=== PATIENT | female | born 1995 | race Caucasian/White ===

== ENCOUNTER 2021-08-01 23:12 | Emergency (ER) | payer SELFPAY ==
[2021-08-01 23:52] LABS: Mucus,Urine FEW /HPF
[2021-08-01 23:54] LABS: Bilirubin,Urine NEG (Negative); Blood,Urine MOD (Negative); Color,Urine Yellow (Yellow); Protein,Urine <15 mg/dL mg/dL (Negative); Urobilinogen,Urine < 2.0 mg/dL (<2.0)
[2021-08-01 23:59] LABS: Basophils % (Auto) 0.2 % (0.0-1.8); Eosinophils # (Auto) 0.2 K/mm3 (0.0-0.4); Eosinophils % (Auto) 1.3 % (0.0-4.3); Hematocrit 41.9 % (30.3-42.9); Hemoglobin 13.8 gm/dl (10.1-14.3); Lymphocytes # (Auto) 3.9 K/mm3 (1.2-5.4); Lymphocytes % (Auto) 30.8 % (13.4-35.0); Mean Corpuscular HGB Conc 33 % (30-34); Mean Corpuscular Volume 89 fl (79-97); Monocytes # (Auto) 1.1 K/mm3 (0.0-0.8); Monocytes % (Auto) 8.7 % (0.0-7.3); Platelet Count 286 K/mm3 (140-440); Red Blood Count 4.71 M/mm3 (3.65-5.03)
--- NOTE | 2021-08-02 02:56 | Emergency Department Report ---
ED Female HPI - General Chief complaint: Vaginal Bleeding Stated complaint: COMPLICATION Time Seen by Provider: 08/02/21 02:22 Source: patient Mode of arrival: Ambulatory Limitations: No Limitations - History of Present Illness Initial comments: Is a 26-year-old female who is G0, who presents for vaginal spotting x3 days. Last menstrual cycle 1 month ago. Patient states she believes she is having miscarriage. There is no fevers no chills no nausea no vomiting. No abnormal vaginal discharge no back pain. Abdominal pain is described at 4/10 cramping bilateral lower. There is no exacerbated by movement ,symptoms are relieved by nothing tried there is been no fever no chills. MD Complaint: vaginal bleeding - Related Data Allergies Allergy/AdvReac Type Severity Reaction Status Date / Time No Known Allergies Allergy Verified 08/01/21 23:24 ED Review of Systems ROS: Stated complaint: COMPLICATION Other details as noted in HPI Constitutional: denies: chills, fever Eyes: denies: eye pain, eye discharge, vision change ENT: denies: ear pain, throat pain Respiratory: denies: cough, shortness of breath, wheezing Cardiovascular: denies: chest pain, palpitations Endocrine: no symptoms reported Gastrointestinal: abdominal pain. denies: nausea, vomiting, diarrhea, hematemesis, melena Genitourinary: abnormal menses, other (Vaginal spotting pink). denies: urgency, dysuria, frequency, hematuria, discharge Musculoskeletal: denies: back pain, joint swelling, arthralgia Skin: denies: rash, lesions Neurological: denies: headache, weakness, paresthesias Psychiatric: denies: anxiety, depression Hematological/Lymphatic: denies: easy bleeding, easy bruising ED Past Medical Hx - Past Medical History Previous Medical History?: (Lateral lower quadrant) ED Physical Exam - General Limitations: No Limitations General appearance: alert, in no apparent distress - Head Head exam: Present: atraumatic, normocephalic - Eye Eye exam: Present: normal appearance, EOMI Pupils: Present: normal accommodation - ENT ENT exam: Present: mucous membranes moist - Neck Neck exam: Present: normal inspection - Respiratory Respiratory exam: Present: normal lung sounds bilaterally. Absent: respiratory distress, wheezes, stridor - Cardiovascular Cardiovascular Exam: Present: regular rate, normal rhythm, normal heart sounds. Absent: systolic murmur, diastolic murmur, rubs, gallop - GI/Abdominal GI/Abdominal exam: Present: soft, normal bowel sounds. Absent: distended, tenderness, guarding, rebound, rigid - Rectal Rectal exam: Present: deferred - Extremities Exam Extremities exam: Present: normal inspection, full ROM, normal capillary refill. Absent: tenderness, pedal edema - Back Exam Back exam: Present: normal inspection, full ROM. Absent: CVA tenderness (R), CVA tenderness (L) - Neurological Exam Neurological exam: Present: alert, oriented X3, CN II-XII intact, normal gait - Psychiatric Psychiatric exam: Present: normal affect, normal mood - Skin Skin exam: Present: warm, dry, intact, normal color. Absent: rash ED Course Vital Signs 08/01/21 23:20 Temperature 98.2 F Pulse Rate 86 Respiratory 18 Rate Blood Pressure 147/107 [Right] O2 Sat by Pulse 96 Oximetry ED Medical Decision Making - Lab Data Result diagrams: 08/01/21 23:31 Labs 08/01/21 08/01/21 08/01/21 23:31 23:31 23:31 WBC 12.6 H RBC 4.71 Hgb 13.8 Hct 41.9 MCV 89 MCH 29 MCHC 33 RDW 13.0 L Plt Count 286 Lymph % (Auto) 30.8 [place] % (Auto) 8.7 H Eos % (Auto) 1.3 Baso % (Auto) 0.2 Lymph # (Auto) 3.9 [place] # (Auto) 1.1 H Eos # (Auto) 0.2 Baso # (Auto) 0.0 Seg Neutrophils % 59.0 Seg Neutrophils # 7.5 HCG, Qual Positive HCG, Quant 11.43 H Urine Color Urine Turbidity Urine pH Ur Specific [place] Urine Protein Urine Glucose (UA) Urine Ketones Urine Blood Urine Nitrite Ur Reducing Substances Urine Bilirubin Urine Ictotest Urine Urobilinogen Ur Leukocyte Esterase Urine WBC (Auto) Urine RBC (Auto) U Epithel Cells (Auto) Urine Mucus Blood Type 08/01/21 08/01/21 23:31 Unknown WBC RBC Hgb Hct MCV MCH MCHC RDW Plt Count Lymph % (Auto) [place] % (Auto) Eos % (Auto) Baso % (Auto) Lymph # (Auto) [place] # (Auto) Eos # (Auto) Baso # (Auto) Seg Neutrophils % Seg Neutrophils # HCG, Qual HCG, Quant Urine Color Yellow Urine Turbidity Clear Urine pH 8.0 H Ur Specific [place] 1.019 Urine Protein <15 mg/dl Urine Glucose (UA) Neg Urine Ketones Neg Urine Blood Mod Urine Nitrite Neg Ur Reducing Substances Not Reportable Urine Bilirubin Neg Urine Ictotest Not Reportable Urine Urobilinogen < 2.0 Ur Leukocyte Esterase Neg Urine WBC (Auto) 2.0 Urine RBC (Auto) 99.0 U Epithel Cells (Auto) 5.0 Urine Mucus Few Blood Type O POSITIVE - Radiology Data Radiology results: report reviewed, image reviewed ULTRASOUND OBSTETRIC INDICATION: with abdominal pain and spotting. TECHNIQUE: Transabdominal and Transvaginal. COMPARISON: None available. FINDINGS: GESTATIONAL SAC: Not seen. YOLK SAC: Not seen. EMBRYO/FETUS: Not seen. ADNEXA: A left ovarian dominant follicle measures up to 1.7 cm. No other significant abnormality. FREE FLUID: None. ADDITIONAL FINDINGS: None. IMPRESSION: 1. No intrauterine is identified sonographically. Please correlate with the patient's beta hCG level. 2. No acute findings. Signer Name: Dominguez Leong MD Signed: 08/02/2021 3:33 AM Workstation Name: [id number] Transcribed By: IVAN Dictated By: Dominguez Leong MD Electronically Authenticated By: Dominguez Leong MD Signed Date/Time: 08/02/21332 DD/ 0 TD/TT: ULTRASOUND OBSTETRIC INDICATION: with abdominal pain and spotting. TECHNIQUE: Transabdominal and Transvaginal. COMPARISON: None available. FINDINGS: GESTATIONAL SAC: Not seen. YOLK SAC: Not seen. EMBRYO/FETUS: Not seen. ADNEXA: A left ovarian dominant follicle measures up to 1.7 cm. No other significant abnormality. FREE FLUID: None. ADDITIONAL FINDINGS: None. IMPRESSION: 1. No intrauterine is identified sonographically. Please correlate with the patient's beta hCG level. 2. No acute findings. Signer Name: Dominguez Leong MD Signed: 08/02/2021 3:33 AM Workstation Name: [id number] Transcribed By: IVAN Dictated By: Dominguez Leong MD Electronically Authenticated By: Dominguez Leong MD Signed Date/Time: 08/02/21332 DD/ 0331 TD/TT: - Medical Decision Making Ultrasound demonstrates left ovarian cyst, no sonographic IUP noted however hCG is 11.4 plan diagnosed ovarian cyst, bleeding during first trimester, pelvic rest, follow-up with [employer] DEPARTMENT MANAGER in 1 to 2 days for repeat ultrasound. Patient verbalized agreement and understanding with discharge plan. Patient will be DC'd home in stable condition at this time. Critical care attestation.: If time is entered above; I have spent that time in minutes in the direct care of this critically ill patient, excluding procedure time. ED Disposition Clinical Impression: Vaginal bleeding during Ovarian cyst Qualifiers: Laterality: left Qualified Code(s): N83.202 - Unspecified ovarian cyst, left side Disposition: HOME / SELF CARE / HOMELESS Is pt being admited?: No Does the pt Need Aspirin: No Condition: Stable Additional Instructions: Follow-up with [employer] DEPARTMENT MANAGER in 1 to 2 days. Pelvic rest until cleared by [employer] DE[employer]MENT MANAGER. Return to emergency department should symptoms worsen. Referrals: MONTY MOORE MD [Staff Physician] - 3-5 Days Forms: Work/School Release Form(ED) Time of Disposition: 05:10
--- NOTE | 2021-08-02 03:37 | Ultrasound Report ---
ULTRASOUND OBSTETRIC INDICATION: with abdominal pain and spotting. TECHNIQUE: Transabdominal and Transvaginal. COMPARISON: None available. FINDINGS: GESTATIONAL SAC: Not seen. YOLK SAC: Not seen. EMBRYO/FETUS: Not seen. ADNEXA: A left ovarian dominant follicle measures up to 1.7 cm. No other significant abnormality. FREE FLUID: None. ADDITIONAL FINDINGS: None. IMPRESSION: 1. No intrauterine is identified sonographically. Please correlate with the patient's beta hCG level. 2. No acute findings. Signer Name: Dominguez Leong MD Signed: 08/02/2021 3:33 AM Workstation Name: [id number]
[2021-08-02 05:19] VITALS: BP 146/100
== END 2021-08-02 05:17 | disposition home or self-care (01) ==
LOC: ED 23:12
DX: O20.9 Hemorrhage in early pregnancy, unspecified (principal); O26.891 Other specified pregnancy related conditions, first trimester; N83.202 Unspecified ovarian cyst, left side; Z3A.00 Weeks of gestation of pregnancy not specified
CPT/HCPCS: 36415; 76801; 76817; 81001; 84702; 84703; 85025; 86900; 86901; 99284

== ENCOUNTER 2021-08-03 20:42 | Emergency (ER) | payer MEDICAID ==
[2021-08-03 20:47] VITALS: BP 125/85
--- NOTE | 2021-08-04 01:04 | Emergency Department Report ---
ED Female HPI - General Chief complaint: Vaginal Bleeding Stated complaint: COMPLICATION Time Seen by Provider: 08/04/21 00:57 Source: patient Mode of arrival: Ambulatory Limitations: No Limitations - History of Present Illness Initial comments: Is a 26-year-old female who is 6 weeks who presents for vaginal bleeding. This is a follow-up for this patient she was seen on 08/01/2021 diagnosed with threatened miscarriage. Patient was to follow-up with [facility] however she cannot get an appointment until next week. Patient denies fevers or chills states vaginal spotting with clots at this time. There is no nausea no vomiting no back pain no fevers or chills. Patient rates cramping at 3/10. Patient is G1, . MD Complaint: vaginal bleeding, pelvic pain - Related Data Previous Rx's Medication Instructions Recorded Last Taken Type Ibuprofen [Motrin 800 MG tab] 800 mg PO Q8HR PRN #30 tablet 08/04/21 Unknown Rx Allergies Allergy/AdvReac Type Severity Reaction Status Date / Time No Known Allergies Allergy Verified 08/01/21 23:24 ED Review of Systems ROS: Stated complaint: COMPLICATION Other details as noted in HPI Constitutional: denies: chills, fever Eyes: denies: eye pain, eye discharge, vision change ENT: denies: ear pain, throat pain Respiratory: denies: cough, shortness of breath, wheezing Cardiovascular: denies: chest pain, palpitations Endocrine: no symptoms reported Gastrointestinal: denies: abdominal pain, nausea, diarrhea Genitourinary: denies: urgency, dysuria, discharge Musculoskeletal: denies: back pain, joint swelling, arthralgia Skin: denies: rash, lesions Neurological: denies: headache, weakness, paresthesias Psychiatric: denies: anxiety, depression Hematological/Lymphatic: denies: easy bleeding, easy bruising ED Past Medical Hx - Medications Home Medications: Home Medications Medication Instructions Recorded Confirmed Last Taken Type Ibuprofen [Motrin 800 MG tab] 800 mg PO Q8HR PRN #30 tablet 08/04/21 Unknown Rx ED Physical Exam - General Limitations: No Limitations General appearance: alert, in no apparent distress - Head Head exam: Present: normocephalic - Eye Eye exam: Present: EOMI Pupils: Present: normal accommodation - ENT ENT exam: Present: mucous membranes moist - Neck Neck exam: Present: normal inspection, full ROM. Absent: tenderness - Respiratory Respiratory exam: Present: normal lung sounds bilaterally. Absent: respiratory distress, wheezes - Cardiovascular Cardiovascular Exam: Present: regular rate, normal rhythm, normal heart sounds. Absent: systolic murmur, diastolic murmur, rubs, gallop - GI/Abdominal GI/Abdominal exam: Present: soft, normal bowel sounds. Absent: distended, tenderness - Rectal Rectal exam: Present: deferred - External exam: Present: other (Deferred) - Extremities Exam Extremities exam: Present: normal inspection, full ROM, normal capillary refill. Absent: pedal edema - Back Exam Back exam: Present: normal inspection, full ROM. Absent: CVA tenderness (R), CVA tenderness (L) - Neurological Exam Neurological exam: Present: alert, oriented X3, CN II-XII intact, normal gait - Psychiatric Psychiatric exam: Present: normal affect, normal mood - Skin Skin exam: Present: warm, dry, intact, normal color. Absent: rash ED Course Vital Signs 08/03/21 20:44 Temperature 98.4 F Pulse Rate 106 H Respiratory 20 Rate Blood Pressure 125/85 [Right] O2 Sat by Pulse 98 Oximetry ED Medical Decision Making - Lab Data Labs 08/04/21 01:08 HCG, Quant 2.50 - Medical Decision Making hCG quant is serially decreased on 08/01/2021 was 11.45, on today it is 2.5, this is likely a miscarriage. Plan DC to home, follow-up with BUSINESS [employer] MARKETING TEACHER as scheduled. Return to emergency department should symptoms worsen. Patient verbalized agreement understanding of discharge plan. Patient DC'd home in stable condition at this time. Critical care attestation.: If time is entered above; I have spent that time in minutes in the direct care of this critically ill patient, excluding procedure time. ED Disposition Clinical Impression: Miscarriage Disposition: HOME / SELF CARE / HOMELESS Is pt being admited?: No Does the pt Need Aspirin: No Condition: Stable Instructions: Miscarriage, [id number], Managing Loss Additional Instructions: Follow-up with your BUSINESS AND MARKETING TEACHER doctor as scheduled. Return to emergency should symptoms worsen. Prescriptions: Ibuprofen [Motrin 800 MG tab] 800 mg PO Q8HR PRN #30 tablet PRN Reason: pain Referrals: MONTY MOORE MD [Staff Physician] - 3-5 Days Forms: Work/School Release Form(ED) Time of Disposition: 02:23
== END 2021-08-04 03:00 | disposition home or self-care (01) ==
LOC: ED 20:42
DX: O03.9 Complete or unspecified spontaneous abortion without complication (principal); Z3A.01 Less than 8 weeks gestation of pregnancy
CPT/HCPCS: 36415; 84702; 99282; 99283